=== PATIENT | male | born 1980 | race Caucasian/White ===

== ENCOUNTER 2024-09-16 04:30 | Emergency (ER) | payer SELFPAY ==
[~2024-09-16] VITALS: Ht 185.4 cm; Wt 79.4 kg
[~2024-09-16 04:30] MED LIST: AMOXICILLIN500 MG PO; KEFLEX500 MG PO; MOTRIN800 MG PO; PEN-VEE K500 MG PO; TRAMADOL HCL50 MG PO; VICODIN 5/500 505 MG PO
[2024-09-16] MEDS ORDERED: Ondansetron Hydrochloride 4 MG TAB SL ONE (04:45)
[2024-09-16] MEDS ORDERED: PENICILLIN VK500 MG PO (04:45)
[2024-09-16] MEDS ORDERED: Acetaminophen/Hydrocodone 5 MG/325 MG TABLET PO ONE (04:45)
[2024-09-16] MEDS ORDERED: PENICILLIN V POTASSIUM 500 MG TAB PO ONE (04:45)
== END 2024-09-16 04:42 | disposition home or self-care (01) ==
LOC: ED 04:30
DX: K02.9 Dental caries, unspecified (principal); J45.909 Unspecified asthma, uncomplicated